=== PATIENT | female | born 1955 | race Two or more races ===

== ENCOUNTER 2021-06-14 09:52 | Emergency (ER) | payer OTHER ==
[~2021-06-14] VITALS: Ht 160 cm; Wt 69.9 kg
[2021-06-14] MEDS ORDERED: INDERAL LA80 MG (10:13)
== END 2021-06-14 11:38 | disposition home or self-care (01) ==
LOC: ER 09:52
DX: H11.31 Conjunctival hemorrhage, right eye (principal)